=== PATIENT | female | born 1935 | race Caucasian/White ===

== ENCOUNTER 2020-09-24 13:58 | Emergency (ER) | payer OTHER ==
[~2020-09-24 13:58] MED LIST: ASPIRIN CHEWABL81 MG PO; CARAFATE1 GM PO; CLARITIN10 MG PO; CLEARLAX238 GM PO; DULCOLAX5 MG PO; HYDREA500 MG PO; LEVAQUIN500 MG PO; LEVAQUIN750 MG PO; METRONIDAZOLE500 MG PO; NORCO 5-325 TA1 EACH PO; PRILOSEC20 MG PO; PROBIOTIC1 EAC5 PO; SINGULAIR10 MG PO; STIOLTO INH; VENTOLIN HFA IN18 GM INH; VITAMIN D2000 UNI1 PO; ZOFRAN8 MG PO
[2020-09-24 15:01] LABS: BASOPHIL 1.1 % (0-2); EOSINOPHIL 3.2 % (0-7); HCT 44.6 % (37.0-47.0); HGB 14.7 g/dl (12.5-16.0); LYMPHOCYTE 9.9 % (15-48); MCH 33.9 pg (25.0-31.0); MCV 102.8 fL (78.0-100.0); MONOCYTE 10.6 % (0-12); NEUTROPHIL 73.5 % (41-80); NRBC 0; PLT 404 K/uL (150-400); RBC 4.34 M/uL (4.20-5.40); RDW 15.3 % (11.5-14.0); WBC 10.8 K/uL (4.0-10.5)
[2020-09-24 15:59] LABS: ALBUMIN 2.9 g/dL (3.4-5.0); BILIRUBIN - TOTAL 0.5 mg/dL (0.2-1.0); BUN/CREAT RATIO (CALC) 15.6 RATIO; CREATININE 0.77 mg/dL (0.51-0.95); GLOBULIN (CALCULATION) 4.9 g/dL; POTASSIUM 4.4 mmol/L (3.5-5.1); TOTAL PROTEIN 7.8 g/dL (6.4-8.2)
== END 2020-09-24 16:33 | disposition home or self-care (01) ==
LOC: FER 13:58
PROVIDERS: Emergency Medicine
DX: J44.9 Chronic obstructive pulmonary disease, unspecified (principal); Z88.0 Allergy status to penicillin; Z88.8 Allergy status to other drugs, medicaments and biological substances
CPT/HCPCS: 36415; 71046; 80053; 84484; 85025; 93005

== ENCOUNTER 2021-11-03 18:20 | Day surgery (SDCO) | payer OTHER ==
[~2021-11-03] VITALS: Ht 165.1 cm; Wt 64.9 kg
[~2021-11-03 18:20] MED LIST changes: +CEFDINIR300 MG PO; +FOSAMAX70 MG PO; +TRELEGY ELLIPT1 EAC1 INH; +VITAMIN D3250 MC1 PO
[2021-11-03 19:02] LABS: BASOPHIL 0.5 % (0-2); EOSINOPHIL 1.1 % (0-7); HCT 45.3 % (37.0-47.0); HGB 14.9 g/dl (12.5-16.0); LYMPHOCYTE 5.8 % (15-48); MCH 37.1 pg (25.0-31.0); MCHC 32.9 g/dL (32.0-36.0); MCV 112.7 fL (78.0-100.0); MONOCYTE 7.7 % (0-12); MPV 9.7 fL (6.0-9.5); NEUTROPHIL 83.5 % (41-80); NRBC 0; PLT 262 K/uL (150-400); RBC 4.02 M/uL (4.20-5.40); RDW 15.9 % (11.5-14.0); WBC 16.8 K/uL (4.0-10.5)
[2021-11-03 19:20] LABS: ALBUMIN 3.5 g/dL (3.4-5.0); BILIRUBIN - TOTAL 0.7 mg/dL (0.2-1.0); BUN/CREAT RATIO (CALC) 17.1 RATIO; CREATININE 0.76 mg/dL (0.51-0.95); GLOBULIN (CALCULATION) 4.5 g/dL; POTASSIUM 4.5 mmol/L (3.5-5.1)
[2021-11-03 19:36] LABS: LACTIC ACID 1.2 mmol/L (0.4-1.9)
[2021-11-03 20:36] LABS: BILIRUBIN NEGATIVE (NEGATIVE); BLOOD NEGATIVE Ery/uL (NEGATIVE); CLARITY CLEAR (CLEAR); COLOR YELLOW (YELLOW); GLUCOSE (U) NORMAL (NORMAL); LEUKOCYTES NEGATIVE Leu/uL (NEGATIVE); NITRITE NEGATIVE (NEGATIVE); PROTEIN NEGATIVE (NEGATIVE); SPECIFIC GRAVITY 1.015 (1.001-1.030); UROBILINOGEN 0.2 mg/dL (0.2-1.0)
[2021-11-03 20:49] LABS: URINARY WBC RARE
[2021-11-03 21:24] LABS: CORONAVIRUS 2019 SARS-COV-2 NEGATIVE (NEGATIVE); INFLUENZA A NAA NEGATIVE (NEGATIVE)
[2021-11-04] MEDS ORDERED: PROBIOTIC250 MG PO (02:26)
[2021-11-04] MEDS ORDERED: XOPENEX (00.63 MG/3 INH (02:29)
[2021-11-04] MEDS ORDERED: BREZTRI AEROS10.7 GM INH (02:30)
--- NOTE | 2021-11-04 03:09 | NUR ---
PATIENT ARRIVED TO UNIT AND ADMITTED TO ROOM 202 AT 0105. DAUGHTER RITA PRESENT. PATIENT ALERT AND ORIENTED X4. PATIENT NOTED WITH INCREASED SOA. NON- PRODUCTIVE COUGH. PATIENT STATED SHE COUGHED UP THICK YELLOW PHLEGM AT HOME AND BROUGHT SAMPLE TO ER. LUNG SOUNDS WITH WHEEZING, EXP RUBS BOTH LOBES AFTER NEB GIVEN BY RT. PATIENT HAS 02 VIA NC AT 2LPM. DENIES PAIN. UP TO BSC X1 ASSIST. VOIDED YELLOW URINE, DENIES PAIN AND BURNING UPON URINATION. MEDS VERIFIED. NO SKIN ISSUES, DOES HAVE BRUISING TO BILATERAL HANDS FROM BLOOD DRAWS AND IV'S
[2021-11-04 06:37] LABS: BUN/CREAT RATIO (CALC) 18.8 RATIO; CREATININE 0.64 mg/dL (0.51-0.95); POTASSIUM 4.3 mmol/L (3.5-5.1)
[2021-11-04 07:00] LABS: BASOPHIL 0.2 % (0-2); EOSINOPHIL 0 % (0-7); LYMPHOCYTE 4.9 % (15-48); MCH 36.9 pg (25.0-31.0); MCHC 32.5 g/dL (32.0-36.0); MCV 113.6 fL (78.0-100.0); MONOCYTE 1.6 % (0-12); MPV 9.2 fL (6.0-9.5); NEUTROPHIL 91.9 % (41-80); NRBC 0; PLT 227 K/uL (150-400); RBC 3.52 M/uL (4.20-5.40); RDW 15.5 % (11.5-14.0)
--- NOTE | 2021-11-04 15:28 | NUR ---
11/04/21 Ms. Paniagua lives alone. She has 02 at @l and portable tank. Patient has requested [facility] for nursing, PT / OT, safety evaluation and rollator. PCP = Dr. Coleman.
[2021-11-05 07:03] LABS: HCT 43.8 % (37.0-47.0); HGB 14.3 g/dl (12.5-16.0); MCH 37.1 pg (25.0-31.0); MCHC 32.6 g/dL (32.0-36.0); MCV 113.8 fL (78.0-100.0); MPV 9.2 fL (6.0-9.5); RBC 3.85 M/uL (4.20-5.40); RDW 15.9 % (11.5-14.0)
[2021-11-05 07:08] LABS: WBC 26.9 K/uL (4.0-10.5)
[2021-11-05 08:25] LABS: ALBUMIN 3.1 g/dL (3.4-5.0); BILIRUBIN - DIRECT 0.1 mg/dL (0.00-0.20); BILIRUBIN - TOTAL 0.3 mg/dL (0.2-1.0); BUN/CREAT RATIO (CALC) 23.4 RATIO; C-REACTIVE PROTEIN 3.1 mg/dL (<=0.90); CREATININE 0.64 mg/dL (0.51-0.95); GLOBULIN (CALCULATION) 4.3 g/dL; POTASSIUM 4.6 mmol/L (3.5-5.1); TOTAL PROTEIN 7.4 g/dL (6.4-8.2)
[2021-11-05] MEDS ORDERED: HYDREA500 MG PO (09:06)
--- NOTE | 2021-11-05 16:00 | NUR ---
PT. INTERESTED IN [facility] AND ROLLATOR. REFERRAL SENT TO A AND HAS ACCEPTED PT. REFERRAL SENT TO [facility] (PT'S CHOICE) FOR ROLLATOR.
[2021-11-06 05:09] LABS: HBSAG SCREEN Negative (Negative); HCV AB <0.1 (0.0-0.9); HEP A AB, IGM Negative (Negative); HEP B CORE AB, IGM Negative (Negative)
--- NOTE | 2021-11-06 13:34 | NUR ---
ROLLATOR WAS DELIVERED TO PT'S ROOM.
[2021-11-06] MEDS ORDERED: VIBRAMYCIN100 MG PO (13:56)
[2021-11-06] MEDS ORDERED: TESSALON PERLE100 MG PO (13:56)
[2021-11-06] MEDS ORDERED: PROBIOTIC250 MG PO (13:56)
[2021-11-06] MEDS ORDERED: DUONEB 2.5-0.5M1 AMP INH (13:56)
[2021-11-06] MEDS ORDERED: FOLIC ACID1 MG PO (13:56)
[2021-11-06] MEDS ORDERED: PREDNISONE 20MG20 MG PO (13:56)
== END 2021-11-06 14:48 | disposition home health service (06) ==
LOC: FER 18:20 → FMS 11-04 00:03
PROVIDERS: Emergency Medicine; Family Medicine; Nurse Practitioner; ADMIT Internal Medicine
DX: J96.21 Acute and chronic respiratory failure with hypoxia (principal); J44.1 Chronic obstructive pulmonary disease with (acute) exacerbation; N18.2 Chronic kidney disease, stage 2 (mild); D75.89 Other specified diseases of blood and blood-forming organs; R74.01 Elevation of levels of liver transaminase levels; R74.02 Elevation of levels of lactic acid dehydrogenase [LDH]; R78.81 Bacteremia; K21.9 Gastro-esophageal reflux disease without esophagitis; M81.0 Age-related osteoporosis without current pathological fracture; Z99.81 Dependence on supplemental oxygen; Z87.891 Personal history of nicotine dependence; Z88.0 Allergy status to penicillin; Z88.2 Allergy status to sulfonamides; Z88.8 Allergy status to other drugs, medicaments and biological substances; Z20.822 Contact with and (suspected) exposure to COVID-19
CPT/HCPCS: 36415; 71045; 80048; 80053; 80074; 80076; 81001; 82607; 83605; 84145; 84484; 85025; 86140; 87040; 87070; 87077; 87088; 87186; 87205; 93005; 94010; 94640; 94664; 94667; 94668; 94760; 94762; 97116; 97162; 97166; 97530; 97530-GP; 97535; G0378; J0456; J1650; J2930; J3370; J3475; J7030; J7050; J7512; U0002

== ENCOUNTER 2021-11-19 15:42 | Emergency (ER) | payer OTHER ==
[~2021-11-19 15:42] MED LIST changes: +BREZTRI AEROS10.7 GM INH; +DUONEB 2.5-0.5M1 AMP INH; +FOLIC ACID1 MG PO; +PREDNISONE 20MG20 MG PO; +PROBIOTIC250 MG PO; +TESSALON PERLE100 MG PO; +VIBRAMYCIN100 MG PO; +XOPENEX (00.63 MG/3 INH
[2021-11-19 18:04] LABS: BASOPHIL 0.4 % (0-2); EOSINOPHIL 0 % (0-7); HCT 46.1 % (37.0-47.0); HGB 15.4 g/dl (12.5-16.0); LYMPHOCYTE 2.8 % (15-48); MCH 37.2 pg (25.0-31.0); MCHC 33.4 g/dL (32.0-36.0); MCV 111.4 fL (78.0-100.0); MONOCYTE 7.1 % (0-12); MPV 9.1 fL (6.0-9.5); NEUTROPHIL 87.6 % (41-80); NRBC 0; PLT 198 K/uL (150-400); RBC 4.14 M/uL (4.20-5.40); RDW 15.2 % (11.5-14.0)
[2021-11-19 18:06] LABS: WBC 27.5 K/uL (4.0-10.5)
[2021-11-19 18:22] LABS: BILIRUBIN - TOTAL 0.9 mg/dL (0.2-1.0); BUN/CREAT RATIO (CALC) 32.4 RATIO; CREATININE 0.74 mg/dL (0.51-0.95); GLOBULIN (CALCULATION) 3.2 g/dL; POTASSIUM 4.1 mmol/L (3.5-5.1); TOTAL PROTEIN 6.2 g/dL (6.4-8.2)
[2021-11-19 18:51] LABS: BILIRUBIN 1+ mg/dL (NEGATIVE); BLOOD NEGATIVE Ery/uL (NEGATIVE); CLARITY CLEAR (CLEAR); GLUCOSE (U) NORMAL (NORMAL); LEUKOCYTES TRACE Leu/uL (NEGATIVE); NITRITE POSITIVE (NEGATIVE); PROTEIN NEGATIVE (NEGATIVE)
[2021-11-19 18:54] LABS: COLOR AMBER (YELLOW)
[2021-11-19 18:57] LABS: BACTERIA 2+; URINARY WBC RARE
[2021-11-19] MEDS ORDERED: CEFDINIR300 MG PO (19:51)
[2021-11-19] MEDS ORDERED: ONDANSETRON ODT4 MG PO (19:51)
[2021-11-19] MEDS ORDERED: DIFLUCAN150 MG PO (21:13)
== END 2021-11-19 21:20 | disposition home or self-care (01) ==
LOC: FER 15:42
PROVIDERS: Emergency Medicine
DX: N39.0 Urinary tract infection, site not specified (principal); R11.2 Nausea with vomiting, unspecified; J44.9 Chronic obstructive pulmonary disease, unspecified; K21.9 Gastro-esophageal reflux disease without esophagitis; Z88.0 Allergy status to penicillin; Z88.8 Allergy status to other drugs, medicaments and biological substances; Z79.899 Other long term (current) drug therapy
CPT/HCPCS: 36415; 74022; 80053; 81001; 82150; 83690; 85025; 87088; J0696; J1885; J2405; J7120